=== PATIENT | female | born 1970 | race African-American/Black ===

== ENCOUNTER 2017-12-07 07:00 | Emergency (ER) | payer MEDICAID ==
[~2017-12-07] VITALS: Ht 152.4 cm; Wt 109.0 kg
[~2017-12-07 07:00] MED LIST: CELEXA; HYDROCHLOROTHIAZIDE
[2017-12-07] MEDS ORDERED: ACETAMINOPHEN WITH CODEINE 120-12MG/5ML UDC PO ONE (08:45)
[2017-12-07] MEDS ORDERED: PENICILLIN G BENZATHINE 1,200,000 UNITS/2ML SYR IM ONE (08:45)
[2017-12-07] MEDS ORDERED: DEXAMETHASONE 10 MG/ML VIAL IM ONE (08:45)
[2017-12-07 09:26] LABS: CLARITY URINE CLEAR (CLEAR); COLOR URINE YELLOW (YELLOW); KETONES URINE TRACE (NEGATIVE); LEUKOCYTE ESTERASE URINE NEGATIVE (NEGATIVE); NITRITE URINE NEGATIVE (NEGATIVE); OCCULT BLOOD URINE NEGATIVE (NEGATIVE); PROTEIN URINE TRACE (NEGATIVE); SPECIFIC GRAVITY URINE 1.035 (1.005-1.030)
[2017-12-07] MEDS ORDERED: AZITHROMYCIN 500 MG TABLET PO SCH (10:00)
[2017-12-07 11:55] VITALS: BP 195/90
[2017-12-10 15:10] LABS: CHLAMYDIA TRACHOMATIS NAA Negative (Negative); NEISSERIA GONORRHOEAE NAA Negative (Negative)
== END 2017-12-07 12:10 | disposition home or self-care (01) ==
LOC: ER 07:39
DX: J02.9 Acute pharyngitis, unspecified (principal); F14.20 Cocaine dependence, uncomplicated; I10 Essential (primary) hypertension; R13.10 Dysphagia, unspecified; R56.9 Unspecified convulsions; Z88.6 Allergy status to analgesic agent
CPT/HCPCS: 81003; 81025; 87070; 87210; 87430; 87491; 87591; 96372; 99285; J0561; J1100

== ENCOUNTER 2020-10-01 04:20 | Emergency (ER) | payer MEDICAID ==
[~2020-10-01] VITALS: Ht 167.6 cm; Wt 125.0 kg
[2020-10-01 06:16] LABS: EOSINOPHILS % 3.7 % (0.0-5.0); HEMATOCRIT. 43.2 % (36.0-48.0); HEMOGLOBIN. 13.7 g/dL (12.0-16.0); MEAN CORPUSCULAR HEMOGLOBIN 24.6 pg (28.0-32.0); MEAN CORPUSCULAR VOLUME 77.8 fL (81.0-99.0); MEAN PLATELET VOLUME 8.6 fl (7.4-10.4); MONOCYTES % 6.8 % (2.0-8.0); NEUTROPHILS % 72.5 % (40.0-76.0); PLATELET 309 x1000/uL (130-400); RED BLOOD CELL COUNT 5.55 mill/uL (4.2-5.4); RED CELL DISTRIBUTION WIDTH 18.5 % (11.6-14.6)
[2020-10-01 06:22] LABS: CHLORIDE 103 mEq/L (98-107)
[2020-10-01] MEDS ORDERED: ACETAMINOPHEN WITH CODEINE 300/30MG TABLET PO ONE (06:30)
[2020-10-01] MEDS ORDERED: PREDNISONE 20MG TABLET PO ONE (06:30)
[2020-10-01] MEDS ORDERED: IOHEXOL-350 100 ML BOTTLE ONE (11:56)
[2020-10-01 12:30] VITALS: BP 143/84
[2020-10-01] MEDS ORDERED: P50 MT (12:37)
[2020-10-01] MEDS ORDERED: ALBU6.7H9 INH (12:37)
== END 2020-10-01 12:30 | disposition home or self-care (01) ==
LOC: ER 04:20
DX: R07.9 Chest pain, unspecified (principal); J45.901 Unspecified asthma with (acute) exacerbation; I10 Essential (primary) hypertension; R56.9 Unspecified convulsions; Z88.6 Allergy status to analgesic agent
CPT/HCPCS: 36415; 71045; 80053; 84484; 85025; 85379; 93005; 99285; J7512; Q9967

== ENCOUNTER 2021-05-16 11:07 | Emergency (ER) | payer MEDICAID ==
[~2021-05-16] VITALS: Ht 152.4 cm; Wt 109.0 kg
[~2021-05-16 11:07] MED LIST changes: +ALBU6.7H9 INH; +P50 MT
[2021-05-16] MEDS ORDERED: ALBU6.7H9 INH (11:41)
[2021-05-16] MEDS ORDERED: P50 MT (11:43)
[2021-05-16] MEDS ORDERED: PREDNISONE 20MG TABLET PO ONE (11:45)
[2021-05-16 12:00] LABS: BASOPHILS % 0.8 % (0.0-2.0); EOSINOPHILS % 1.2 % (0.0-5.0); HEMATOCRIT. 34.1 % (36.0-48.0); LYMPHOCYTES % 18.7 % (20.0-50.0); MEAN CORPUSCULAR HEMOGLOBIN 25.9 pg (28.0-32.0); MEAN CORPUSCULAR VOLUME 80.1 fL (81.0-99.0); MEAN PLATELET VOLUME 8.2 fl (7.4-10.4); MONOCYTES % 7.1 % (2.0-8.0); NEUTROPHILS % 72.2 % (40.0-76.0); PLATELET 253 x1000/uL (130-400); RED BLOOD CELL COUNT 4.25 mill/uL (4.2-5.4); RED CELL DISTRIBUTION WIDTH 16.6 % (11.6-14.6)
[2021-05-16 12:06] LABS: CHLORIDE 105 mEq/L (98-107)
[2021-05-16 13:09] VITALS: BP 167/72
== END 2021-05-16 13:10 | disposition home or self-care (01) ==
LOC: ER 11:07
DX: U07.1 COVID-19 (principal); J45.909 Unspecified asthma, uncomplicated; I10 Essential (primary) hypertension; Z88.6 Allergy status to analgesic agent; Z79.899 Other long term (current) drug therapy; Z86.59 Personal history of other mental and behavioral disorders
CPT/HCPCS: 36415; 71045; 80053; 83880; 84484; 85025; 93005; 99285; C9803; J7512; U0003; U0005

== ENCOUNTER 2022-05-25 07:20 | Emergency (ER) | payer MEDICAID ==
[~2022-05-25] VITALS: Ht 172.7 cm; Wt 107.0 kg
[2022-05-25] MEDS ORDERED: DIPHENHYDRAMINE 50MG/ML VIAL IV ONE (07:45)
[2022-05-25] MEDS ORDERED: SODIUM CHLORIDE 0.9% 1,000 ML IV ONE (07:45)
[2022-05-25] MEDS ORDERED: METOCLOPRAMIDE HCL 10MG/2ML VIAL IV ONE (07:45)
[2022-05-25 08:15] LABS: BASOPHILS % 0.7 % (0.0-2.0); EOSINOPHILS % 0.5 % (0.0-5.0); HEMATOCRIT. 41.2 % (36.0-48.0); HEMOGLOBIN. 13.2 g/dL (12.0-16.0); MEAN CORPUSCULAR HEMOGLOBIN 28.5 pg (28.0-32.0); MEAN CORPUSCULAR VOLUME 88.8 fL (81.0-99.0); MEAN PLATELET VOLUME 8.6 fl (7.4-10.4); MONOCYTES % 6.8 % (2.0-8.0); PLATELET 246 x1000/uL (130-400); RED BLOOD CELL COUNT 4.64 mill/uL (4.2-5.4); RED CELL DISTRIBUTION WIDTH 17.6 % (11.6-14.6)
[2022-05-25 08:23] LABS: CHLORIDE 108 mEq/L (98-107)
[2022-05-25] MEDS ORDERED: KETOROLAC 30MG/ML VIAL IV ONE (10:30)
[2022-05-25] MEDS ORDERED: MORPHINE SULFATE 4 MG/ML CPJ (NOT FOR IM USE) IV ONE (11:45)
[2022-05-25] MEDS ORDERED: HYDROCHLOROTHIAZIDE 25MG TABLET PO ONE (15:30)
[2022-05-25 16:14] VITALS: BP 174/99
== END 2022-05-25 16:16 | disposition short-term general hospital (02) ==
LOC: ER 07:20 → CANBEDREQ 05-26 09:04
DX: R51.9 Headache, unspecified (principal); R07.89 Other chest pain; I10 Essential (primary) hypertension; J45.909 Unspecified asthma, uncomplicated; Z88.6 Allergy status to analgesic agent; Z86.59 Personal history of other mental and behavioral disorders
CPT/HCPCS: 36415; 70450; 80053; 84484; 85025; 93005; 96361; 96374; 96375; 99285; J1200; J1885; J2270; J2765; J7030; Z7610

== ENCOUNTER 2022-10-20 20:09 | Emergency (ER) | payer MEDICAID, OTHER ==
[~2022-10-20] VITALS: Ht 170.2 cm; Wt 100.0 kg
[~2022-10-20 20:09] MED LIST changes: +ALBU6.7H3 INH; -ALBU6.7H9 INH
[2022-10-20] MEDS ORDERED: AMLODIPINE 10MG TABLET PO ONE (20:45)
[2022-10-20] MEDS ORDERED: HYDRALAZINE HCL 50MG TABLET PO ONE (20:45)
[2022-10-20 21:29] VITALS: BP 195/99
== END 2022-10-20 21:47 | disposition home or self-care (01) ==
LOC: ER 20:09
DX: F41.9 Anxiety disorder, unspecified (principal); I10 Essential (primary) hypertension; J45.909 Unspecified asthma, uncomplicated; G40.909 Epilepsy, unspecified, not intractable, without status epilepticus; Z88.6 Allergy status to analgesic agent
CPT/HCPCS: 99283